=== PATIENT | male | born 2000 | race Caucasian/White ===

== ENCOUNTER → 2021-02-03 | Day surgery (SDC) | payer OTHER ==
[~2021-02-03] VITALS: Ht 167.6 cm; Wt 49.9 kg
[~2021-02-03] MED LIST: HYDROCODON-ACE1 EAC4 PO; HYDROCODON-ACE1 EAC6 PO
== END | disposition home or self-care (01) ==
LOC: OR 09:08
DX: S52.571A Other intraarticular fracture of lower end of right radius, initial encounter for closed fracture (principal); S52.611A Displaced fracture of right ulna styloid process, initial encounter for closed fracture; Z20.822 Contact with and (suspected) exposure to COVID-19; W01.0XXA Fall on same level from slipping, tripping and stumbling without subsequent striking against object, initial encounter; Y93.66 Activity, soccer
CPT/HCPCS: 73100; 76000; C1713; J0690; J1100; J1885; J2001; J2405; J2550; J2704; J2765; J3010; J7120

== ENCOUNTER 2021-02-09 21:15 | Emergency (ER) | payer OTHER | END 2021-02-09 22:45 | disposition home or self-care (01) | LOC: ER1 21:15 | DX: Z48.817 Encounter for surgical aftercare following surgery on the skin and subcutaneous tissue (principal) | CPT/HCPCS: 99282 ==